=== PATIENT | male | born 1955 | race Caucasian/White ===

== ENCOUNTER 2018-07-16 20:21 | Inpatient (IN) | payer BC ==
[2018-07-16] MEDS ORDERED: hydrALAZINE 20 MG/ML VIAL SLOW IVP PRN (21:15)
[2018-07-16] MEDS ORDERED: Ondansetron PF 4 MG/2 ML Vial IVP PRN (21:15)
[2018-07-16] MEDS ORDERED: Ondansetron ODT 4 MG TAB PO PRN (21:15)
[2018-07-16] MEDS ORDERED: Acetaminophen 500 MG TAB PO PRN (21:21)
[2018-07-16] MEDS ORDERED: Acetaminophen 1,000 MG in Premix Bag 1 BAG IVPB SCH (21:30)
--- NOTE | 2018-07-16 22:20 | HP ---
HISTORY OF PRESENT ILLNESS: Asael Riggs is a 63-year-old male patient, [employer], presents with severe back pain refractory to outpatient management. The patient injured his back at 43 years of age in lumbar area. Never saw physician. He has never had an MRI or CAT scan. He has had intermittent flare ups. These treated with ice packs, tramadol, Tylenol, and other qycf-cos-xykbhxe medications. In the last 3 to 4 years, his pain is increased and he has had 2 to 3 drinks a day to help manage his pain as well taking tjuc-xtn-dcuswxh medications. He is now progressed to the point where he cannot tolerate the pain, he is having trouble with ambulating. He saw his [facility] chiropractor, had an injection, it did not help at all. He has had previous injections that have helped. On 07/13/2018, he started a Medrol Dosepak. Tomorrow is his last day to complete that. He is having trouble walking around the house. His sense of balance is decreased. He reports he is having trouble urinating and having to go very frequently. For this reason, he is admitted directly to the hospital because of progressive leg weakness, bladder dysfunction, and severe sciatica. His back pain is in lumbar and radiates mostly down his right leg, but involves some of his left buttocks. The pain radiates below the popliteal area into his proximal calf. He sleeps in his recliner to get possible relief. He describes his pain as 8 to 10/10. ALLERGIES: NONE. SOCIAL HISTORY: Tobacco, none. He does smoke an occasional cigar. Alcohol, very rarely until the last 3 to 4 years. He has been drinking 2 to 3 mixed drinks a day to help cope with the pain at night. MEDICATIONS: None routinely, although he takes tqra-bpr-wsxrfre Tylenol and Ultram as needed without relief. PAST SURGICAL HISTORY: Finger surgery, right knee open surgery x2 as a young adult, and toe surgery. PAST MEDICAL HISTORY: Chronic back pain. The patient was lifting a heavy pot at 47 years of age and experienced pain in his thoracic area and has occasional pain in that area, but this is not as bothersome as his lumbar pain. The patient suffered an injury many years ago where he injured his left hamstring and it fatigues easily when ambulating a long distance. REVIEW OF SYSTEMS: Ten-point noncontributory. He had a colonoscopy in his 20s, but none as an adult. PHYSICAL EXAMINATION: GENERAL: The patient is alert, oriented. GCS 15. HEAD, EARS, EYES, NOSE, AND THROAT: Unremarkable. LUNGS: Clear to auscultation. CARDIAC: Regular rate and rhythm without murmur or gallop. ABDOMEN: Obese, soft, nontender. No hernias. SKIN: Normal. The patient reflexes seem to be normal on the right patella and ankle. He has good dorsi and plantar flexion, but poor proprioception on the right. He is in obvious pain. LABORATORY DATA: Pending. ASSESSMENT AND PLAN: 1. Severe sciatica. We will admit to the hospital for pain control. MRI lumbar without contrast and consult Neurosurgery. I have spoken to Dr. Galdino Fritz, who will see him in the morning, have ordered his MRI for the morning without contrast. 2. Weight gain due to alcohol consumption over the last 4 to 5 years. 3. Alcohol consumption to help with pain control over the last 4 to 5 years. Job ID: [id number]
[2018-07-16 22:29] LABS: #Basophils 0.1 thou/uL (0.0-0.2); #Eosinphils 0.1 thou/uL (0.0-0.7); #Lymphocytes 1.8 thou/uL (1.20-3.40); #Monocytes 0.9 thou/uL (0.11-0.59); %Basophils 0.6 % (0.0-1.0); %Eosinophils 0.6 % (0.0-10.0); %Lymphocytes 20.4 % (21.0-51.0); %Monocytes 9.7 % (0.0-10.0); %Neutrophils 68.7 % (42.0-75.0); Hemoglobin 16.8 g/dL (14.0-18.0); Mean Corpuscular HGB CONC 32.6 g/dL (32.0-36.0); Mean Corpuscular Hemoglobin 32.5 pg (27.0-31.0); Mean Corpuscular Volume 99.7 fL (78.0-98.0); Mean Platelet Volume 8.2 fL (7.4-10.4); Platelet Count 190 thou/uL (130-400); RBC Distribution Width 12.2 % (11.5-14.5); Red Blood Cell (RBC) Count 5.16 mill/uL (4.70-6.10); White Blood Cell (WBC) Count 8.7 thou/uL (4.8-10.8)
[2018-07-16 22:35] VITALS: BMI 45.3
[2018-07-16 22:50] LABS: ALT (SGPT) 32 U/L (8-55); AST (SGOT) 16 U/L (5-34); Albumin 3.9 g/dL (3.4-4.8); Alkaline Phosphatase 75 U/L (40-150); Anion Gap 10 mmol/L (10-20); BUN (Urea Nitrogen) 19 mg/dL (8.4-25.7); Bilirubin, Total 0.4 mg/dL (0.2-1.2); Calc. Creatinine Clearance 135 mL/min (70-130); Carbon Dioxide 27 mmol/L (23-31); Chloride 105 mmol/L (98-107); Estimated GFR-MDRD 60; Globulin 2.5 g/dL (2.4-3.5); Glucose 106 mg/dL (80-115); Potassium 4.1 mmol/L (3.5-5.1); Protein, Total 6.4 g/dL (5.8-8.1); Sodium 138 mmol/L (136-145)
[2018-07-16] MEDS ORDERED: Fentanyl 100 MCG/2 ML VIAL SLOW IVP SCH (23:00)
[2018-07-16] MEDS ORDERED: Enoxaparin Sodium 40 MG/0.4 ML SYRINGE SC SCH (23:00)
[2018-07-16] MEDS: Lactated Ringer's 1,000 ML IV SCH (23:11)
[2018-07-16] MEDS: Ketorolac Tromethamine 30 MG/ML VIAL IVP SCH (23:15)
[2018-07-17] MEDS: Fentanyl 100 MCG/2 ML VIAL SLOW IVP PRN ×4 (05:03→15:10)
[2018-07-17] MEDS: Ketorolac Tromethamine 30 MG/ML VIAL IVP SCH ×2 (05:40→12:09)
[2018-07-17 06:41] LABS: #Basophils 0.1 thou/uL (0.0-0.2); #Eosinphils 0.1 thou/uL (0.0-0.7); #Lymphocytes 1.5 thou/uL (1.20-3.40); #Monocytes 0.5 thou/uL (0.11-0.59); %Basophils 1.2 % (0.0-1.0); %Eosinophils 0.8 % (0.0-10.0); %Lymphocytes 20.5 % (21.0-51.0); %Monocytes 7.3 % (0.0-10.0); %Neutrophils 70.3 % (42.0-75.0); Hemoglobin 16.2 g/dL (14.0-18.0); Mean Corpuscular HGB CONC 32.6 g/dL (32.0-36.0); Mean Corpuscular Hemoglobin 32.5 pg (27.0-31.0); Mean Corpuscular Volume 99.8 fL (78.0-98.0); Mean Platelet Volume 8.4 fL (7.4-10.4); Platelet Count 176 thou/uL (130-400); RBC Distribution Width 12.3 % (11.5-14.5); Red Blood Cell (RBC) Count 4.97 mill/uL (4.70-6.10); White Blood Cell (WBC) Count 7.1 thou/uL (4.8-10.8)
[2018-07-17 07:03] LABS: ALT (SGPT) 30 U/L (8-55); AST (SGOT) 17 U/L (5-34); Albumin 3.7 g/dL (3.4-4.8); Alkaline Phosphatase 64 U/L (40-150); Anion Gap 12 mmol/L (10-20); BUN (Urea Nitrogen) 19 mg/dL (8.4-25.7); Bilirubin, Total 0.7 mg/dL (0.2-1.2); Calc. Creatinine Clearance 181 mL/min (70-130); Calcium 8.7 mg/dL (7.8-10.44); Carbon Dioxide 26 mmol/L (23-31); Chloride 104 mmol/L (98-107); Estimated GFR-MDRD 84; Globulin 2.3 g/dL (2.4-3.5); Glucose 104 mg/dL (80-115); Potassium 3.9 mmol/L (3.5-5.1); Sodium 138 mmol/L (136-145)
--- NOTE | 2018-07-17 10:19 | MRI ---
MRI LUMBAR SPINE WITHOUT CONTRAST: Date: 07/17/18 INDICATION: History of sciatica and difficulty with bladder control. The patient has had bilateral leg and back p ain for a long time. History of fall 4 years ago. TECHNIQUE: Multiplanar, multisequence MR images were obtained of the lumbar spine without contrast. No CT, radio graphic, or MR comparisons are available. FINDINGS: There is likely acute Schmorl's node involving the inferior end plate of L3, as well as the inferior end plate of L1. Conus is seen to terminate at approximately L1. Visualized aspects of the retroperitoneum and paravertebral soft tissues appear within normal limits. There is Grade I spondylolisthesis of L5 on S1. There are bilateral pars defects at L5. At L5-S1, there is facet hypertrophy and a broad based disc bulge, in addition to the Grade I anterol isthesis, inducing mild bilateral neural foraminal narrowing, left greater than right. At L4-5, there is a broad based bulge with mild facet joint degenerative change inducing mild neural foraminal encroachment. At L3-4, there is a mild broad based bulge without appreciable central canal narrowing. There is mild facet joint degenerative change in addition to the broad based bulge inducing mild bilateral neural foraminal encroachment. At L2-3, there is a mild broad based bulge, mild facet hypertrophy inducing mild neural foraminal enc roachment. At L1-L2, there is no appreciable central canal or neural foraminal narrowing. There is a mild broad based bulge. At T12-L1, there is no appreciable central canal or neural foraminal narrowing. IMPRESSION: 1. Bilateral pars defects at L5-S1 with Grade I anterolisthesis inducing mild bilateral neural nikia inal narrowing, left greater than right. 2. Mild neural foraminal encroachment seen at L2-3 through L4-5. POS: CET
[2018-07-17] MEDS: Lactated Ringer's 1,000 ML IV SCH (11:01)
[2018-07-17] MEDS ORDERED: Bupivacaine 0.25% 10 ML VIAL ONE (11:12)
[2018-07-17] MEDS ORDERED: methylPREDNISolone Acetate 40 mg/ml Vial ONE (11:12)
[2018-07-17] MEDS ORDERED: Iopamidol 250 51% 100 ML VIAL FS ONE (11:12)
[2018-07-17] MEDS ORDERED: Lidocaine 2% 20 ml MDV ONE (11:12)
[2018-07-17] MEDS: Famotidine 20 MG TAB PO SCH ×2 (12:09→21:31)
--- NOTE | 2018-07-17 14:37 | CT ---
CT LUMBAR SPINE: HISTORY: Chronic sciatica, back pain. FINDINGS: Noncontrast-enhanced CT images of the lumbar spine were obtained. T11-12: Unremarkable. T12-L1: Unremarkable. L1-2: Unremarkable. L2-3: Unremarkable. L3-4: There is a broad-based disk bulge with bilateral facet and ligamentum flavum hypertrophy. Con genitally short pedicles seen. A moderate degree of central and lateral recess stenosis is seen. L4-5: There is a broad-based disk bulge with bilateral facet and ligamentum flavum hypertrophy as we ll as congenitally short pedicles resulting in moderate to severe central and lateral recess stenosis . L5-S1: Bilateral pars interarticularis defect seen. There is minimal anterolisthesis of L5 on S1, g rade I imaging approximately 4.6 mm. There is moderate neural foraminal narrowing seen. IMPRESSION: Grade I anterolisthesis of L5 on S1 with central and lateral recess stenosis at L4-5 and L5-S1. POS: MARYANNE
[2018-07-17] MEDS ORDERED: HYDROcodone/Acetaminophen 5/325 mg Tablet PO PRN (15:42)
--- NOTE | 2018-07-17 15:52 | RAD ---
LUMBAR SPINE FOUR VIEWS: HISTORY: Lumbar spine pain. COMPARISON: None. FINDINGS: Five lumbar type vertebral bodies. Lumbar spine vertebral body height is maintained. There is no fr acture. Disk space heights are preserved. No spondylolisthesis. No abnormal motion upon flexion or extension. IMPRESSION: No significant loss of disk space height. No significant spondylolisthesis. POS: MARYANNE
[2018-07-17 16:19] LABS: Hemoglobin A1c 4.8 % (4.0-6.0)
[2018-07-17 16:39] LABS: PSA-Asymptomatic (SCREENING) 0.5 ng/mL (0-4.0); Thyroid Stimulating Hormone 2.1028 uIU/mL (0.35-4.94)
[2018-07-17] MEDS ORDERED: Lisinopril 2.5 MG TAB PO SCH (16:45)
[2018-07-17] MEDS: HYDROcodone/Acetaminophen 5/325 mg Tablet PO PRN ×2 (17:02→23:10)
[2018-07-17] MEDS ORDERED: Enoxaparin Sodium 40 MG/0.4 ML SYRINGE SC SCH (21:00)
[2018-07-17] MEDS: Oxazepam 10 MG CAP PO SCH (21:30)
[2018-07-17] MEDS: Ibuprofen 600 MG TAB PO PRN (21:30)
--- NOTE | 2018-07-17 23:35 | HP ---
Consult from Dr. Ruvalcaba for medical management of hypertension. HISTORY OF PRESENT ILLNESS: This patient is a 63-year-old male who is in the hospital because of intractable back pain that has progressed. The patient has been dealing with back pain for a good while, initially started conservatively with vktt-det-jmpmjgp medications and has admittedly been drinking some alcohol at home in order to self medicate, so that he can try to sleep with the pain. The patient's pain progressed to the point that he was unable to further tolerated it, and also of concern he had some urinary incontinence in the morning, on the day of admission concerning for possible loss of bladder tone. Dr. Ruvalcaba admitted the patient subsequently. The patient has undergone imaging of the lumbar spine with x-ray, CT, and MRI which essentially shows some L5 on S1 listhesis without major cord impingement. Currently, the plan is to have Pain Management to evaluate the patient for possible injections. In the hospital, the patient has also been noted to be hypertensive with blood pressure readings as high as 164/112. The patient does not carry a history of hypertension, although in questioning him, he does report that he has had high readings in the past. He has not had his blood pressure checked routinely in a long while. He does not have a primary care provider whom he sees. He also reports that the last time, he had his blood pressure checked, it was high in the 140s, and he has gained about 60 pounds since that time. He denies any headache, chest pain, palpitations, or shortness of breath. REVIEW OF SYSTEMS: Notable for occasional significant lower extremity edema. The patient has traveled a lot with his job and the traveling has resulted in poor eating habits, poor for drinking habits, and some intermittent fluid retention, primarily in his ankles. He also admits to snoring significantly. Does have some occasional daytime somnolence. PAST MEDICAL HISTORY: The patient carries no chronic diagnosis including hypertension or hyperlipidemia. PAST SURGICAL HISTORY: Finger, right knee, and toe. FAMILY HISTORY: Notable for a brother who had a stroke 12 months ago. He reports that the brother is not overweight, but does smoke heavily. SOCIAL HISTORY: The patient is . He drinks 2 to 3 drinks per day. No tobacco use. CODE STATUS: He is a full code. ALLERGIES: PEANUTS AND YEAST. MEDICATIONS: Home medications, none. Hospital medications include, 1. Tylenol. 2. Zofran. 3. Oxazepam p.r.n. 4. Hydralazine for systolic greater than 170. 5. Pepcid. 6. Ibuprofen. 7. [place]. 8. Fentanyl. PHYSICAL EXAMINATION: VITAL SIGNS: Temperature 97.7, pulse 60, respirations 20, O2 saturation 95% on room air, max BP is 164/112, current BP is 170/90s. GENERAL APPEARANCE: Age-appropriate male. He is awake, alert, oriented, pleasant, and cooperative. He is morbidly obese. HEENT: PERRL, has no OP lesions. Large tongue. Small oral airway. NECK: Thick, but supple and symmetric. HEART: Regular rate and rhythm without murmurs, gallops, or rubs. LUNGS: Clear to auscultation bilaterally with good chest wall expansion and air exchange. ABDOMEN: Soft, nontender, and nondistended. Positive bowel sounds. EXTREMITIES: No cyanosis, clubbing, or edema. Good peripheral pulses. LABORATORY DATA: From today, white count 7.1, hemoglobin 16.2, MCV is 99.8, platelet count 176. Chemistries normal with a globulin of 2.3. Cholesterol is 224. PSA 0.50. TSH is 2.1. Hemoglobin A1c is 4.8. IMPRESSION AND PLAN: 1. Hypertension. The patient has significant elevated blood pressure readings consistently while in the hospital. He does give some history of elevated blood pressures in the past, although he has never been formally diagnosed with hypertension. He has gained a fair amount of weight since he had his last blood pressure check. Certainly, this patient appears to have true hypertension. Given his tendency toward peripheral edema, I counseled the patient at length regarding lifestyle modifications including management of salt and fluids. We will avoid calcium channel blockers because of the peripheral edema. Start him on an CRISTOFER inhibitor with low-dose lisinopril dose now and then start 5 mg per day in the morning. Ultimately, the patient will likely need more than one medication given the degree of his hypertension. He will need to have a PCP whom he can follow up with to continue to titrate this over time and to monitor his potassium level. The patient's sees Dr. Amin, he may be able to follow up there as well. We will also continue to fully risk stratify by checking a full lipid panel in the morning. 2. Hyperlipidemia. Again, lipid panel in the morning. 3. Back pain. The patient has had a thorough workup, does not have evidence of significant impingement. Pain Management will consult. 4. Urinary incontinence. The patient had minimal residual urine on a postvoid residual ultrasound. Talking to the patient, it happened at the same time both days, 1st thing in the morning. The patient is fairly convinced at this point that he simply is just avoiding getting up to go to the bathroom because of pain and therefore simply waited too long had some overflow incontinence that sounds appropriate. 5. Obesity. The patient reports he did speak with Dr. Ruvalcaba about possible bariatric procedures. 6. Probable sleep apnea. The patient's physical exam and symptoms certainly suggest that he has substantial sleep apnea. They do admit to heavy snoring. The patient is encouraged to have outpatient followup for sleep study. 7. Macrocytosis, likely be vitamin deficiency secondary to continued alcohol intake. The patient is on replacement thiamin. 8. Alcohol use. The patient has admittedly been self medicating. He states that he is done with the alcohol, now that he can get his pain adequately controlled. Job ID: [id number]
--- NOTE | 2018-07-18 00:19 | CON ---
DATE OF CONSULTATION: REFERRING PHYSICIAN: Dr. Elan Ruvalcaba. HISTORY OF PRESENT ILLNESS: The patient is a 63-year-old male who presents with an exacerbation of chronic back pain and new onset severe right leg pain. Pain would approximate to right L5 dermatome. He states the right leg feels weak. An MRI scan reveals bilateral pars defect at L5 with minimal listhesis. He is stenotic at the L4 to S5 level. His pain is clearly right-sided and his back pain is bilateral. His back pain location would correspond with an L4-L5, L5-S1 pathology. He has no history of trauma. He has been hurting for at least 1 to 2 years. He has been self medicating with alcohol and admits to drinking up to 1/5th of whiskey or equivalent per day. He was doing fairly well until the last week or so when he could not even ambulate, and his pain level went up to 9/10, seeking care at the emergency room. He was admitted for pain control and further workup and evaluation as he also complained of excessive weakness in the legs and bladder control issues. MRI scan has been obtained and reviewed, there is stenosis to the L4-L5, but no severe stenosis at any level that would. Suggest bowel or bladder issues. No cauda equina compression. No conus compression. No stenosis in the L4-L5 level mentioned. The patient has also had a CT of the lumbar spine demonstrating the pars defect with again stenosis at L4 to S5. ALLERGIES: NO KNOWN DRUG ALLERGIES. SOCIAL HISTORY: No tobacco. He does drink 1/2 to 1/5th of whiskey or equivalent per day. He admits to drinking for at least 1-1/2 to 2 years. MEDICATIONS: Jsns-bmt-wmropgj Tylenol and ultram without relief. He reports self medicating with alcohol for pain control. PAST SURGICAL HISTORY: Knee surgery as a young adult. PAST MEDICAL HISTORY: Significant for back pain and left hamstring injury. REVIEW OF SYSTEMS: Negative with the exception of what is mentioned in HPI. PHYSICAL EXAMINATION: GENERAL: The patient was brought from the floor in a wheelchair. He is an obese, pleasant white male, in acute distress, but obviously uncomfortable. VITAL SIGNS: As documented in the nurses notes. HEENT: Unremarkable. LUNGS: Clear. CARDIAC: Negative. ABDOMEN: He is obese. His abdominal exam is nontender, nonacute. BACK: There is significant extension pain, palpable tenderness at the lumbosacral junction over the L5-S1 segments as it would be expected with this known pars defect. Straight leg raise test on the right side is positive for radicular pain, negative on the left. Reflexes are 1+ bilateral at the patella and ankle. Motor exam reveals no deficits and 5/5 strength throughout. NEUROLOGIC: Devoid of myelopathic symptoms or focal motor sensory deficit. IMPRESSION: 1. Lumbar radiculopathy right side, L5 primarily. L4 to S5 stenosis. 2. L4 to S5 stenosis. 3. Bilateral pars defect at L5. 4. Facet pain. 5. Alcoholism. 6. Obesity. Proceed with bilateral facet blocks today and a right L5 transforaminal injection for pain control. The patient will continue to be hospitalized for next 24 hours to assist pain control and to have Internal Medicine evaluation, possible metabolic issues and alcohol use issues. Job ID: [id number]
--- NOTE | 2018-07-18 00:32 | OP ---
DATE OF PROCEDURE: 07/17/2018 DIAGNOSIS: Severe exacerbation of back and right-sided L5 radiculopathy. PROCEDURES PERFORMED: 1. Right transforaminal L5 steroid injection performed under fluoroscopic guidance. 2. Bilateral L5-S1 facet blocks performed under fluoroscopic guidance. COMPLICATIONS: None. ANESTHESIA: Local only. SUMMARY: Risks and benefits were discussed. Informed consent was obtained. He was taken to the fluoroscopy suite, placed in prone position. The L5-S1 level was identified easily accounting from the L5-S1 lumbosacral disk. The facets were easily identified as well as the right L5 foramen. DuraPrep prep let draw with 1% lidocaine. 25-gauge Chiba needle advanced easily into the foramen at L5. Contrast injected initially revealed extraforaminal spread. Needle was advanced, demonstrating foraminal and slide epidural spread. 1.5 mL of Marcaine with 40 mg of Depo-Medrol was injected. On injection of contrast, no vascular spread was noted. Facet injections were then performed bilaterally at L5 with aspiration of excessive synovial fluid. Fluoroscopic guidance 1% lidocaine, 22-gauge 5-inch needle was advanced intra-articular into each joint and the joint was aspirated with 0.1 mL of synovial fluid from each joint. 20 mg of Depo-Medrol was injected into each L5-S1 facet joint. The patient tolerated the procedure well. Job ID: [id number]
[2018-07-18] MEDS: Lactated Ringer's 1,000 ML IV SCH ×2 (02:55→14:59)
[2018-07-18] MEDS: Oxazepam 10 MG CAP PO SCH ×2 (06:18→14:30)
[2018-07-18] MEDS: HYDROcodone/Acetaminophen 5/325 mg Tablet PO PRN (06:34)
[2018-07-18] MEDS ORDERED: Regadenoson 0.4 MG/5 ML SYRINGE ONE (07:20)
[2018-07-18 07:22] LABS: Cardiac Risk 3.2 (Less than 4.5)
[2018-07-18] MEDS ORDERED: Lisinopril 5 MG TAB PO SCH (09:00)
[2018-07-18] MEDS ORDERED: Polyethylene Glycol 3350 17 GM Packet PO SCH (09:00)
[2018-07-18] MEDS: Famotidine 20 MG TAB PO SCH (12:15)
--- NOTE | 2018-07-18 12:46 | NM ---
MYOCARDIAL PERFUSION STUDY STRESS IMAGES: HISTORY: Preoperative evaluation. DOSE: Technetium 99m Cardiolite 30 millicuries for the stress portion of the exam. TECHNIQUE/FINDINGS: The patient was stressed using 0.4 mg of Lexiscan. Myocardial stress was performed. No evidence of areas of decreased perfusion seen to suggest myocard ial ischemia or scar. Ejection fraction measured 64%. IMPRESSION: Normal myocardial stress images. POS: CORI
[2018-07-18] MEDS: Ibuprofen 600 MG TAB PO PRN (14:55)
[2018-07-18 15:37] VITALS: BP 126/74; TEMP 97.8
--- NOTE | 2018-07-18 17:32 | PRG ---
DATE OF SERVICE: 07/18/2018 SUBJECTIVE: The patient is feeling somewhat better today. His pain has improved. His blood pressure numbers have improved as well. OBJECTIVE: VITAL SIGNS: Temperature 97.8, pulse 76, respirations 20, O2 saturations 93% to 96% on room air, BP 126/74. GENERAL APPEARANCE: Age-appropriate male, obese, in no distress. HEART: Regular rate and rhythm. LUNGS: Clear bilaterally. ABDOMEN: Soft, nontender, and nondistended. EXTREMITIES: Warm and dry. IMPRESSION AND PLAN: 1. Back pain, status post injections with pain management, feeling better, will try to get up and around some today, see how he feels. 2. Hypertension, significantly improved on medications. We will continue those for the time being. I had a long discussion about his need for weight loss and reduction of his alcohol consumption, which may improve his overall blood pressure. He may be able to come off medicines at some point. 3. Cholesterol. The patient's cholesterol panel is actually relatively good. His HDL is high and his ratio is fine. However, his HDL is probably somewhat artificially elevated because of the alcohol consumption that may come down some after he quits the alcohol. I had a long discussion regarding the low glycemic index diet and ways to continue to maintain adequate cholesterol panel, trying to avoid further medications. 4. Obesity. Again counseled the patient at length regarding the need to give a couple of months to lifestyle modifications and if he is failing to resolve with that, could consider some type of bariatric intervention. Recommend that he try to get his sleep apnea addressed in order to help in his effort to lose weight. 5. Possible obstructive sleep apnea. The patient certainly has symptoms and physical exam consistent with that. Recommend he follow up with the PCP in order to get this tested as an outpatient, so that he can help himself in effort to lose weight. 6. Macrocytosis, on B vitamins. Recommend he continue that on an outpatient basis. Job ID: [id number]
--- NOTE | 2018-07-19 02:29 | DIS ---
DATE OF ADMISSION: 07/16/2018 DATE OF DISCHARGE: 07/18/2018 DISCHARGE DIAGNOSES: 1. Chronic low back pain, self-medicated with hydrocodone, Ultram, Motrin and alcohol. Obesity, 45 BMI, 6 feet tall, 334 pounds. 2. Hypertension, newly diagnosed this hospitalization. 3. Mild elevation of cholesterol. 4. MRI lumbar spine, bilateral pars defect L5-S1 with grade 1 and anterolisthesis including mild bilateral neural foraminal left greater than right. Mild neural foraminal encroachment seen on L2-L3 and L4-L5. Lumbar CAT scan obtained revealing grade 1 anterolisthesis L5 on S1 with central and lateral recess stenosis, L4-L5 and L5-S1. 5. Lumbar spine x-ray flexion-extension, 07/07/2018. No significant loss of disc space height. No significant spondylolisthesis seen. Consultation with Dr. Daquan Landers and Dr. Galdino Fritz and hospitalist Dr. Patten. Dr. Galdino Fritz saw him, evaluated his CAT scans and asked Dr. Landers to see him, who evaluated him for occlusion of lumbar radiculopathy, right-sided L5, primarily L4-L5, L4 and S5 stenosis, L4-L5 and S5 stenosis, bilateral pars defect, L5 facet pain, alcoholism, obesity. The patient underwent 07/17/2018 right transforaminal L5 steroid injection performed under fluoroscopic guidance. Bilateral L5-S1 facet blocks performed under fluoroscopic guidance for severe exacerbation of back pain and right-sided L5 radiculopathy. Dr. Patten saw the patient in consultation for his hypertension, initially starting with 2.5 mg of lisinopril a day and increased to 5 mg a day, and he was sent home on that for his pain control. The patient had some urinary complaints but on urinary scanning, he did not have any significant postvoid residual and most of his urinary problems were related to chronic pain, not wanting to get up and go to the bathroom. There is no evidence of bladder outlet obstruction. Suspect sleep apnea based on symptoms per Dr. Patten and myself. The patient underwent a nuclear stress test due to his age of 63, but a possible future consideration of back surgery fusion which Dr. Galdino Fritz may consider pending his response to injections and nonsurgical therapy. The patient had a normal myocardial stress test with 64% ejection fraction. No evidence of ischemia. The patient's white count was 7, hemoglobin 16. His triglycerides were normal at 58, cholesterol 213, LDL cholesterol 135, HDL cholesterol 66, . PSA normal at 0.5. TSH normal at 2.1. Renal function normal. Hemoglobin A1c 4.8. Glucoses this hospitalization, 106 to 104. HISTORY: A 63-year-old male patient with a long history of low back pain, has never had any imaging, but has dealt with this with [id number] medications. It became so severe in the last few years that he has been self medicating with alcohol. He went to see a chiropractor recently and had an injection without any success. He then was started on Medrol Dosepak, which by the time I saw him, he was on his next to the last day without any improvement in his back pain. Initially, we were trying to establish outpatient Neurosurgery consultation but the pain was so severe that he was admitted on Tuesday night, undergoing the above studies after discussed with Dr. Galdino Fritz. Dr. Galdino Fritz saw the patient, evaluated his imaging and asked Dr. Landers to see him. Dr. Landers performed the above fluoroscopic-guided injections with marked improvement in his pain. The patient was initially treated with fentanyl but after the injection, was able to treat his pain with hydrocodone 5/325 one to two p.o. q.i.d. p.r.n. pain. He was sent home with #50. He was also taking Motrin 600 mg p.o. q.i.d. p.r.n. pain over the counter. He has tried Ultram at home without success and had side effects, disagreed with him, and thus he was not given any more prescription for Motrin. Dr. Patten, hospitalist, saw him for his hypertension. It is markedly improved with lisinopril, but the dose was increased from 2.5 to 5 mg, which he was discharged home with. The patient will follow up with Dr. Landers for the next [address] Galdino Fritz in the next 2 weeks. The patient may need a fusion in the future, but hopefully we can avoid that with successful weight loss, alcohol cessation, injections and pain management by Dr. Landers. He will follow up with Dr. Ruvalcaba as needed. He is interested in bariatric surgery and I discussed with him extensively sleeve gastrectomy versus gastric bypass and encouraged him to attend our bariatric seminar, which he will obtain the schedule from our office. Office can check his insurance information and see if his insurance will cover this. He will follow up with me as needed for this. He was encouraged to attend the seminar and visit my office to consider bariatric surgery. He has comorbidities of hypertension, elevated cholesterol, sleep apnea, and chronic back pain. Job ID: [id number]
== END 2018-07-18 17:58 | disposition home or self-care (01) | DRG 552 ==
LOC: SURG A 20:49 → SURG B 21:35
PROVIDERS: ADMIT Specialist; ATTEND Specialist
PROC: 3E0U33Z Introduction of Anti-inflammatory into Joints, Percutaneous Approach (ICD-10-PCS; principal; 2018-07-17)
PROC: 3E0U3BZ Introduction of Anesthetic Agent into Joints, Percutaneous Approach (ICD-10-PCS; 2018-07-17)
DX: M54.16 Radiculopathy, lumbar region (principal); Z68.42 Body mass index [BMI] 45.0-49.9, adult; G89.29 Other chronic pain; F10.10 Alcohol abuse, uncomplicated; I10 Essential (primary) hypertension; E78.5 Hyperlipidemia, unspecified; R32 Unspecified urinary incontinence; E66.9 Obesity, unspecified; D75.89 Other specified diseases of blood and blood-forming organs; G47.33 Obstructive sleep apnea (adult) (pediatric); Z98.890 Other specified postprocedural states
CPT/HCPCS: 36415; 72120; 72131; 72148; 78452; 80053; 80061; 82465; 83036; 84443; 85025; 93005; 93010; 93017; A9500; G0103; J0360; J1030; J1650; J1885; J2001; J2785; J3010; J3411; J7050; S0020